=== PATIENT | female | born 1960 | race Two or more races ===

== ENCOUNTER 2024-01-24 16:53 | Emergency (ER) | payer MEDICAID, SELFPAY ==
--- NOTE | 2024-01-24 18:17 | EKG_ITS ---
[facility] Test Date: 2024-01-24 Pat Name: GULSHAN CORBETT Department: Room: - Gender: Female Survey Researcher: : 1960 Requested By: Juan A Garrett Order Number: [id number] Reading MD: Juan A Garrett Measurements Intervals [place] Rate: 53 P: 26 [place]: 120 QRS: 42 QRSD: 104 T: 35 QT: 433 QTc: 409 Interpretive Statements SINUS BRADYCARDIA LOW QRS VOLTAGE IN PRECORDIAL LEADS [QRS DEFLECTION < 1.0 mV IN CHEST LEADS] No previous ECG available for comparison /store/S0/[id number]/ecg/[id number].pdf
--- NOTE | 2024-01-24 18:17 | PD.EDRME ---
Rapid Medical Screening Exam RME Arrival date/time: 01/24/24 16:53 63 year old female present to ED for c/o LLQ/flank pain for 2 days I have greeted and performed a focused initial assessment of this patient. A comprehensive ED assessment and evaluation of the patient, analysis of all test results, and completion of the medical decision making process will be conducted by additional ED providers. Chief Complaint: Abdominal Pain Time Seen by Provider: 01/24/24 17:56
[2024-01-24 18:18] VITALS: BP 174/83; PULSE 57; RESP 18; TEMP 36.4; O2SAT 100
[2024-01-24 18:19] VITALS: BMI 35.1
[2024-01-24 18:51] LABS: Basophils # (Auto) 0.1 Thou/mm3 (0.0-0.2); Basophils % (Auto) 0 % (0-2.5); Eosinophils # (Auto) 0.1 Thou/mm3 (0.0-0.5); Eosinophils % (Auto) 1 % (0-10); Hematocrit 41.5 % (36.0-46.0); Immature Granulocytes % (Auto) 1 % (0-0); Lymphocytes # (Auto) 0.7 Thou/mm3 (1.0-4.8); Lymphocytes % (Auto) 6 % (10-50); Mean Corpuscular HGB Conc 33.7 g/dl (31.0-37.0); Mean Corpuscular Hemoglobin 29.3 pg (25.0-35.0); Mean Corpuscular Volume 87 fL (80-100); Monocytes # (Auto) 0.7 Thou/mm3 (0.0-0.8); Monocytes % (Auto) 5 % (0-12); Neutrophils # (Auto) 11.5 Thou/mm3 (1.8-7.7); Neutrophils % (Auto) 88 % (37-80); Nucleated Red Blood Cell % 0 /100 WBC (0); Platelet Count 225 Thou/mm3 (140-440); RDW Standard Deviation 43.3 fL (36.4-46.3); Red Blood Count 4.78 Miln/mm3 (4.00-5.20); White Blood Count 13.1 Thou/mm3 (3.6-11.0)
[2024-01-24 19:07] LABS: Collection Type, Urine Voided; RBC,Urine 0 /hpf (0-3)
[2024-01-24 19:14] LABS: Alanine Aminotransferase 423 U/L (10-49); Albumin, Serum 4.9 gm/dL (3.4-4.8); Albumin/Globulin Ratio 1.6 (1.2-2.2); Alkaline Phosphatase 317 U/L (46-116); Anion Gap 7 (7-16); Aspartate Amino Transferase 264 U/L (0-34); BUN/Creatinine Ratio 14 Ratio (12-20); Bilirubin,Total 2.4 mg/dL (0.3-1.2); Blood Urea Nitrogen 11 mg/dL (9-23); Calcium 10.2 mg/dL (8.3-10.6); Calcium (Corrected) 10.2 mg/dL (8.5-10.1); Carbon Dioxide 26.4 mMol/L (20.0-31.0); Chloride 97 mMol/L (98-107); Creatinine (Component) 0.8 mg/dL (0.6-1.3); Estimated Creatinine Clearance 64.5 mL/min (>60); Glucose 125 mg/dL (74-106); Lipase 46 U/L (12-53); Osmolality,Calculated 261 (275-295); Potassium 3.9 mMol/L (3.4-5.1); Sodium 130 mMol/L (136-145); Total Protein 7.9 gm/dL (5.7-8.2); Troponin I < 0.020 ng/mL (0.0-0.045); eGFR > 60 See Note
[2024-01-24 19:15] LABS: Bacteria,Urine Rare; Bilirubin,Urine Negative (Negative); Blood,Urine Negative (Negative); Clarity,Urine Turbid (Clear/Hazy); Color,Urine Yellow (Lt Yel-Yel); Glucose, Urine Negative (Negative); Ketones,Urine 1+ (Negative); Leukocyte Esterase,Urine Positive (Negative); Nitrite,Urine Negative (Negative); Protein,Urine Negative (Neg - Trace); Specific Gravity,Urine 1.016 (1.001-1.035); Squamous Epithelial Cell,Urine 6 /hpf (0-5); WBC,Urine 23 /hpf (0-5)
[2024-01-24 20:20] VITALS: BP 152/64; PULSE 65; RESP 18; TEMP 36.9; O2SAT 99
--- NOTE | 2024-01-24 22:02 | XR_ITS ---
Examination: CT abdomen with intravenous contrast CT pelvis with intravenous contrast 2-D coronal reconstructions 2-D sagittal reconstructions Date and time of exam:January 25, 2024 1207 hrs. Indications: Abdominal pain radiating to the back with left lower abdominal pain today difficulty breathing. CTDI: vol (mGy) 17.31 DLP: (mGycm) 674 Technique: Multiple axial sections of the abdomen and pelvis have been obtained. 64 slice high-resolution scanner used. 3 mm axial sections have been obtained, post intravenous injection 60 cc [id number] 2-D sagittal, coronal reconstructions obtained. Low dose protocols were performed. One or more of the following dose reduction techniques were used; automated exposure control, adjustment of the mA and/or KV according to patient size, use of iterative reconstruction technique. Findings: No focal liver or splenic lesions Gallbladder sludge versus small gallstones Gallbladder wall is thickened and edematous No pancreatic or adrenal mass 12 mm lower pole left renal angiomyolipoma Heavy abdominal aortic calcification no aneurysmal dilatation Normal appendix No bowel obstruction or diverticulitis Left posterior pelvic cystic mass 6 cm Contracted urinary bladder Moderate osteopenia Impression: Acute cholecystitis, consider MRCP follow-up Recommend pelvic sonography to assess posterior left pelvic 6 cm cystic mass
--- NOTE | 2024-01-24 22:02 | XR_ITS ---
Examination: Abdomen sonogram, Limited Date and time of exam: January 24, 2024 10:46 PM Indications: Upper abdominal pain today Technique: Real-time olguin scale transabdominal sonographic images of the upper abdomen obtained. Findings: Cholelithiasis Gallbladder wall is thickened 0.4 cm with edema Common bile duct 0.5 cm Pancreatic head 2.6 cm Liver 14.1 cm smooth contour no focal liver lesions Normal hepatopedal portal venous flow Patent IVC Impression: Findings most consistent with acute calculus cholecystitis Consider MRCP follow-up for confirmation
[2024-01-24 23:11] VITALS: BP 154/75; PULSE 77; RESP 16; TEMP 36.8; O2SAT 99
--- NOTE | 2024-01-25 | XR_ITS ---
MRI abdomen, without contrast. MRCP Date and time of exam: January 25, 2024 at 0907 hrs. Indications: Jaundice intermittent right upper abdominal pain several months worse yesterday Technique: Multiple axial and coronal images of the abdomen have been obtained with the Siemens 1.5T MRI scanner. Images obtained included T1 weighted transverse images, T2-weighted transverse images, T2-weighted transverse images fat-suppressed, T2 weighted haste fat suppressed transverse images, T1 weighted images, in and out of phase images, T2-weighted coronal images, breath hold, T2 weighted haze coronal images as well as T2 weighted coronal thick slab images, MRCP. Findings: No focal liver lesions Gallstones, gallbladder wall is thickened and edematous, coronal image 11 Common bile duct 6 mm, 4 mm common bile duct stone coronal image 14 No pancreatic mass or peripancreatic edema No hydronephrosis No ascites Aorta normal size No splenomegaly Impression: Acute calculus cholecystitis 4 mm common bile duct stone
--- NOTE | 2024-01-25 01:37 | PRELIM_ITS ---
CT scan of the abdomen and pelvis with intravenous contrast (axial sections with sagittal and coronal reformats); January 25, 2024 at 0007 hoursClinical History: + LUQ/LLQ pain for 2 days.No prior stud y is available for comparison. Findings:The lung bases are clear.There is mild diffuse gallbladder wa ll thickening with possible calculus at the neck and subtle pericholecystic fat stranding. An 8 mm f at density lesion is noted in the left lower renal pole, possibly angiomyolipoma. The kidneys are oth erwise unremarkable. The liver, pancreas, spleen, and adrenals are unremarkable.No evidence of bowel dilatation. The appendix is within normal limits. There are occasional colonic diverticula without ev idence of diverticulitis. Incidental note is made of duodenal diverticulum.The urinary bladder is not well distended with apparent wall thickening. A large cystic lesion in the left ovary, measuring 6 x 4.3 cm. There is no free fluid or free air.There is no adenopathy. The abdominal aorta demonstrates atheromatous calcification without evidence of aneurysm. The osseous structures are unremarkable.Impr ession:Findings suggestive of acute cholecystitis. Recommend further evaluation with sonography.Large left ovarian cystic lesion. Consider further evaluation with elective sonography.Other findings as d escribed above. Report Electronically Signed By: Karan Humphrey 01/25/2024 1:36:36 AM [EST]
--- NOTE | 2024-01-25 03:09 | PD.EDABDPN ---
ED Abdominal Pain RME/HPI General Chief Complaint: Abdominal Pain Stated complaint: ABD PAIN RAD TO BACK, DIFFICULTY BREATHING Time seen by provider: 01/24/24 17:56 Arrival date/time: 01/24/24 16:53 Source: patient and family Mode of arrival: ambulatory Limitations: no limitations RME / HPI RME / HPI narrative: 01/24/24 16:53 63 year old female present to ED for c/o LLQ/flank pain for 2 days I have greeted and performed a focused initial assessment of this patient. A comprehensive ED assessment and evaluation of the patient, analysis of all test results, and completion of the medical decision making process will be conducted by additional ED providers. Dr. Schmid?s Main ED Evaluation: 63-year-old female who presents to the emergency department has had intermittent right upper quadrant pain for the last six months comes and then goes away completely. She does not endorse the pain around meals. This evening she had returned the pain around 7 PM which is the strongest it?s been and occurred while she was cooking. She had not eaten yet. Pain was in the right precautionary and radiated to the back. Pain had resolved spontaneously in the waiting room without intervention. She currently is asymptomatic. Related Data Allergies Allergy/AdvReac Type Severity Reaction Status Date / Time No Known Allergies Allergy Verified 01/24/24 16:56 Review of Systems Review of Systems Systems Reviewed: All systems reviewed, normal except as documented Past Medical History Past Medical History CARDIAC: Positive Cardiac Disorders, Hypercholesterolemia and Hypertension; Negative Congestive Heart Failure RESPIRATORY: Negative Chronic Obstructive Pulmonary Disease (COPD) or Asthma GENITOURINARY: Negative Renal Disease ENDOCRINE: Negative Diabetes Mellitus Type 1 or Diabetes Mellitus Type 2 HEMATOLOGIC: Negative Sickle Cell Disease Surgical History SURGICAL: Positive Tubal Ligation Social History SMOKING STATUS: Never smoker ED Exam Narrative Physical exam: GENERAL APPEARANCE: AxOx4, generally well-appearing, no acute distress. HEENT: NC, AT. MMM. EOMI, clear conjunctiva, oropharynx clear. NECK: Supple without lymphadenopathy. No stiffness or restricted ROM. HEART: Normal rate and regular rhythm, normal S1/S1, no m/r/g LUNGS: CTAB, moving air well. No crackles or wheezes are heard. ABDOMEN: Soft, mild RUQ tenderness, nondistended with good bowel sounds heard. BACK: No midline C/T/L spine pain or deformity, No CVAT, no obvious deformity. EXTREMITIES: Without cyanosis, clubbing or edema. MUSCULOSKELETAL: FROM of all major joints, no chest tenderness NEUROLOGICAL: Grossly nonfocal. Alert and oriented, moving all 4 extremities. CN not formally tested but appear grossly intact. Observed to ambulate with normal gait. Skin: Warm and dry without any rash. General Limitations: Present no limitations Course Course Course Narrative: 0312: I?ve started on antibiotics, given the ultrasound and CT results, for acute calls as soon as possible require MRCP in the morning to rule out CBD stone. Quality Measures none Orders Category Date Time Status CT Screening NOW Care 01/24/24 22:02 Completed EKG (ED ONLY) *Do not use* NOW Care 01/24/24 18:17 Completed Insert IV NOW Care 01/25/24 00:00 Completed MRI Screening NOW Care 01/24/24 23:[address] abdomen pelvis w con Stat Exams 01/24/24 22:02 Completed EKG (ED Only) Stat Exams 01/24/24 18:17 Draft MR MRCP Stat Exams 01/25/24 Completed US abdomen limited Stat Exams 01/24/24 22:02 Completed CBC Stat Lab 01/24/24 18:44 Completed CMP [Comprehensive Metabolic Panel] Stat Lab 01/24/24 18:44 Completed Lipase Stat Lab 01/24/24 18:44 Completed Troponin I Stat Lab 01/24/24 18:44 Completed UA [Urinalysis] Stat Lab 01/24/24 18:55 Completed Urine Culture Stat Lab 01/24/24 18:55 Received Piper/Tazo 3.375 gm [Zosyn] Med 01/25/24 03:12 Discontinued 3.375 gm in 50 ml IV X1 Vital Signs Vital signs: Vital Signs Temperature 97.6 F 01/24/24 18:18 Pulse Rate 57 L 01/24/24 18:18 Respiratory Rate 18 01/24/24 18:18 Blood Pressure 174/83 H 01/24/24 18:18 Pulse Oximetry (%) 100 01/24/24 18:18 Oxygen Delivery Method Room Air 01/24/24 18:18 Abdominal Pain MDM MDM Narrative MDM Narrative:: 0600 Care signed out to Dr. Philippe.. Past medical, surgical, social and family history reviewed. Vitals and home medications reviewed. Results and treatment plan discussed. They will assume the care of the patient at this time and will follow the patient, pending MRCP. Scribe Attestation: I, Roxana Arreaga, am scribing for and in the presence of Dr. Schimd. Provider Notation: Although this document has been carefully reviewed, there may still be some phonetic and other typographical errors. These errors are purely grammatical due to imperfections in the software program and should not be construed in any way to compromise the substance of the patient's medical care during this visit. Patient data External records reviewed:: [facility] previous records Clinical information provided by:: patient Social determinants that could affect healthcare access:: none Patient has the following chronic illnesses:: Hypercholesterolemia and Hypertension How is presenting disease/condition affected by chronic disease/condition?: uneffected by Evaluation data The following diagnostics were reviewed and interpreted by me:: lab results and radiology exam(s) Lab and/or radiology exams considered but not ordered:: None Interpretation Summary: See narrative Examination: Abdomen sonogram, Limited Date and time of exam: January 24, 2024 10:46 PM Indications: Upper abdominal pain today Technique: Real-time olguin scale transabdominal sonographic images of the upper abdomen obtained. Findings: Cholelithiasis Gallbladder wall is thickened 0.4 cm with edema Common bile duct 0.5 cm Pancreatic head 2.6 cm Liver 14.1 cm smooth contour no focal liver lesions Normal hepatopedal portal venous flow Patent IVC Impression: Findings most consistent with acute calculus cholecystitis Consider MRCP follow-up for confirmation Dictated By: Louis Kerr MD CT scan of the abdomen and pelvis with intravenous contrast (axial sections with sagittal and coronal reformats); January 25, 2024 at 0007 hours Clinical History: + LUQ/LLQ pain for 2 days. No prior study is available for comparison. Findings: The lung bases are clear. There is mild diffuse gallbladder wall thickening with possible calculus at the neck and subtle pericholecystic fat stranding. An 8 mm fat density lesion is noted in the left lower renal pole, possibly angiomyolipoma. The kidneys are otherwise unremarkable. The liver, pancreas, spleen, and adrenals are unremarkable. No evidence of bowel dilatation. The appendix is within normal limits. There are occasional colonic diverticula without evidence of diverticulitis. Incidental note is made of duodenal diverticulum. The urinary bladder is not well distended with apparent wall thickening. A large cystic lesion in the left ovary, measuring 6 x 4.3 cm. There is no free fluid or free air.There is no adenopathy. The abdominal aorta demonstrates atheromatous calcification without evidence of aneurysm. The osseous structures are unremarkable. Impression: Findings suggestive of acute cholecystitis. Recommend further evaluation with sonography. Large left ovarian cystic lesion. Consider further evaluation with elective sonography. Other findings as described above. Report Electronically Signed By: Karan Humphrey 01/25/2024 1:36:36 AM [EST] Medications / Prescriptions Medications or Prescriptions considered but not ordered:: None Medication administrations:: Medication Administration History Discontinued Medications Piperacillin/Tazobactam/Dextrose (Zosyn) 3.375 gm in 50 mls @ 100 mls/hr IV X1 ONE Stop: 01/25/24 03:41 Last Infusion: 01/25/24 04:50 Dose: Infused Documented By: Admin: 01/25/24 04:16 Dose: 100 mls/hr Documented By: MCKENZIE As above, if any Consultations Consultation(s) initiated? (list below): No Diagnosis Differential diagnosis abdominal pain: abdominal pain, pancreatitis and other (Calculus cholecystitis, cholelithiasis, choledocholithiasis) Most likely diagnosis given after review of the tests above:: Workup pending Admission Indicated Admission indicated?: not indicated Explain why admission is indicated or not indicated:: Pending MRCP Admission Request Was there a request for admission?: No Disposition Plan Disposition Plan: other (specify) (Signout) Discharge Plan Plan Patient Disposition: Xfer Acute Care [facility] Pt Being Transferred to: [facility] Service Needed for Transfer: Gastroenterology Prescriptions/Referrals Referrals: Lisa Elias FNP-C [Primary Care Provider] - In 1 week Problem List Clinical Impression: Choledocholithiasis, Acute cholecystitis Patient/Caregiver Discharge Instructions Print Language: [place] Stand Alone Forms: Rand Award Info., Patient Portal Info Letter
[2024-01-25 04:13] VITALS: BP 133/65; PULSE 74; RESP 16; TEMP 37.6; O2SAT 98
[2024-01-25] MEDS: PIPER/TAZO 3.375 GM 3.375 GM/50 ML BAG IV (04:16)
[2024-01-25 06:33] VITALS: BP 111/62; PULSE 70; RESP 16; TEMP 37.2; O2SAT 98
[2024-01-25 08:11] VITALS: BP 124/57; PULSE 73; RESP 19; TEMP 37.1; O2SAT 98
--- NOTE | 2024-01-25 10:15 | EDNOTE_ITS ---
Emergency Room Addendum Addendum Narrative: 0600: Care assumed from Dr. Schmid, the previous shift emergency physician. Past medical, surgical, social and family history reviewed. Vitals and home medications reviewed. I will assume the care of the patient at this time, pending MRCP and final disposition. Please refer to the emergency department record for history and examination from initial visit.? Nursing notes reviewed by me. Vital signs reviewed by me. [facility] medical records reviewed by me. No previous ED visits for review. 1055: I spoke with transfer nurse regarding MRCP results and transfer has been initiated. 1140: I spoke with transfer nurse and GI at [facility]. Discussed patients PMHx, HPI, ED course, exam findings, labs, and radiology results. 1205: GI Dr. Heart has accepted the patient ED to ED. DISPOSITION: Txfer to [facility] RADIOLOGY Ordering Physician: Lincoln Schmid MD Date of Service: 01/25/24 Procedure(s): MR MRCP Accession Number(s): [id number] cc: Lisa Elias; Lincoln Schmid MD; Louis Kerr MD~ MRI abdomen, without contrast. MRCP Date and time of exam: January 25, 2024 at 0907 hrs. Indications: Jaundice intermittent right upper abdominal pain several months worse yesterday Technique: Multiple axial and coronal images of the abdomen have been obtained with the Siemens 1.5T MRI scanner. Images obtained included T1 weighted transverse images, T2-weighted transverse images, T2-weighted transverse images fat-suppressed, T2 weighted haste fat suppressed transverse images, T1 weighted images, in and out of phase images, T2-weighted coronal images, breath hold, T2 weighted haze coronal images as well as T2 weighted coronal thick slab images, MRCP. Findings: No focal liver lesions Gallstones, gallbladder wall is thickened and edematous, coronal image 11 Common bile duct 6 mm, 4 mm common bile duct stone coronal image 14 No pancreatic mass or peripancreatic edema No hydronephrosis No ascites Aorta normal size No splenomegaly Impression: Acute calculus cholecystitis 4 mm common bile duct stone Dictated By: Louis Kerr MD Signed By: <Electronically signed by Louis Kerr MD in OV> 01/25/24 0945
[2024-01-25 10:22] VITALS: BP 109/67; PULSE 73; RESP 18; TEMP 36.7; O2SAT 97
--- NOTE | 2024-01-25 11:01 | PC.CM ---
Addendum entered by Margie Benton RN 01/25/24 14:19: 1419 called [facility], spoke to Tamanna and informed pick up attendant time is 1500. Addendum entered by Margie Benton RN 01/25/24 14:15: 1411 called [facility], spoke to [facility] and setup the transport. academic support center director time is 1500. [address] [facility]. 1300 transfer packet is complete with CD inside including dr. meraz. Gave packet to charge nurse and number to call for report on tracker. Charge nurse is getting pt signature. Addendum entered by Margie Benton RN 01/25/24 12:07: 1205 received call from Tamanna at [facility] that Dr. Heart doesn't not want peer to peer but he will accept the pt. Pt is accepted for ED to ED transfer. Abdulaziz Byrnes is accepting the pt. Call for report is [phone]. Addendum entered by Margie Benton RN 01/25/24 11:40: 1140 spoke to Tamanna at [facility]. She wants to speak to Dr. Philippe. Conference call connected. Then she wants to connect Dr. Heart at [facility] with Dr. Philippe for peer to peer. But Dr. Heart is busy at this time. Tamanna stated she will call back when Dr. Heart is available. Addendum entered by Margie Benton RN 01/25/24 11:19: 1118 called [facility], spoke to [place] and initiated the transfer. She stated she will call back after receiving the clinicals. Original Note: 1100 clinicals sent to [facility]. [address] Philippe that pt needs to be transferred for ERCP has CBD stone. Pt needs GI services.
[2024-01-25 12:19] VITALS: BP 109/58; PULSE 58; RESP 19; TEMP 36.7; O2SAT 97
[2024-01-25 14:43] VITALS: BP 117/61; PULSE 60; RESP 18; TEMP 37.1; O2SAT 95
--- NOTE | 2024-01-25 16:22 | PC.NURSE ---
REPORT CALLED TO GOMEZ CHARGE NURSE IN ED.
== END 2024-01-25 23:17 | disposition short-term general hospital (02) ==
PROVIDERS: Physician Assistant; Emergency Provider Emergency Medicine; PCP Nurse Practitioner Family
DX: K80.42 Calculus of bile duct with acute cholecystitis without obstruction (principal); R00.1 Bradycardia, unspecified
CPT/HCPCS: 36415; 74177; 76705; 80053; 81001; 83690; 84484; 85025; 87086; 93005; 96365; 99285; A4649; J2543; Q9967; S8037; 74181